=== PATIENT | female | born 1995 | race Two or more races ===

== ENCOUNTER 2018-01-29 08:14 | Emergency (ER) | payer OTHER ==
[2018-01-29 09:16] LABS: KETONE, URINE AUTO RFX NEGATIVE (NEGATIVE); LEUKOCYTE ESTERASE UR AUTO RFX NEGATIVE (NEGATIVE); MUCUS, URINE RFX SMALL (NEGATIVE); NITRITE, URINE AUTO RFX NEGATIVE (NEGATIVE); RBC, URINE AUTO RFX 4 /HPF (0-3); SPECIFIC GRAVITY UR AUTO RFX 1.023 (1.002-1.035); SQUAM EPITHELIAL CELL UR AURFX 1 /HPF (0-6); WBC, URINE AUTO RFX 1 /HPF (0-3)
== END 2018-01-29 10:01 | disposition home or self-care (01) ==
LOC: M ED 08:14
DX: N83.01 Follicular cyst of right ovary (principal); N83.02 Follicular cyst of left ovary; Z79.3 Long term (current) use of hormonal contraceptives
CPT/HCPCS: 76856

== ENCOUNTER → 2018-11-23 | Outpatient (REF) | payer OTHER ==
[~2018-11-23] MED LIST: TARI1TAB PO
[2018-11-23 16:37] LABS: CHLAMYDIA DNA AMPLIFICATION NEGATIVE (NEGATIVE); GC DNA AMPLIFICATION NEGATIVE (NEGATIVE)
== END ==
LOC: M SFHCPLAZ 12:49
PROVIDERS: ATTEND Internal Medicine Infectious Disease
DX: Z22.39 Carrier of other specified bacterial diseases (principal)